=== PATIENT | male | born 1940 | race Caucasian/White ===

== ENCOUNTER → 2017-01-21 | Outpatient (CLI) | payer MEDICARE, OTHER ==
[~2017-01-21] MED LIST: CELEXA10 MG PO; CINNAMON500 MG PO; DAILY VALUE1 EACH PO; HYDROXYCHLOROQ200 MG PO; LEVOTHROID(SY175 MCG PO; LYRICA 150MG C150 MG PO; NORCO 5-325 TA1 EACH PO; PRESERVISION A1 EAC2 PO; TYLENOL325 MG PO; ULTRAM50 MG PO; ZYRTEC10 MG PO
== END | disposition disaster alternative care site (69) ==
LOC: GRAD 08:38
DX: M47.12 Other spondylosis with myelopathy, cervical region (principal); M47.22 Other spondylosis with radiculopathy, cervical region; M48.02 Spinal stenosis, cervical region; M43.12 Spondylolisthesis, cervical region; M54.2 Cervicalgia; Z98.890 Other specified postprocedural states